=== PATIENT | male | born 1975 | race Hispanic/Latino ===

== ENCOUNTER 2022-12-20 10:48 | Emergency (ER) | payer OTHER ==
[2022-12-20] MEDS ORDERED: Fluorescein Opthalmic Strip ONE (11:43)
[2022-12-20] MEDS ORDERED: Proparacaine 0.5% Opth 15 ML BOT ONE (11:43)
[2022-12-20 12:52] LABS: #Basophils 0.1 thou/uL (0.0-0.2); #Eosinphils 0.1 thou/uL (0.0-0.7); #Monocytes 0.5 thou/uL (0.11-0.59); #Neutrophils 5.6 thou/uL (1.40-6.50); %Basophils 0.7 % (0.0-1.0); %Eosinophils 1.4 % (0.0-10.0); %Lymphocytes 21.5 % (21.0-51.0); %Monocytes 6.2 % (0.0-10.0); Hematocrit 43.5 % (42.0-52.0); Hemoglobin 14.6 g/dL (14.0-18.0); Mean Corpuscular HGB CONC 33.6 g/dL (32.0-36.0); Mean Corpuscular Hemoglobin 28.3 pg (27.0-31.0); Mean Corpuscular Volume 84.3 fl (78.0-98.0); Mean Platelet Volume 9.1 fL (7.4-10.4); Platelet Count 243 10x3/uL (130-400); RBC Distribution Width 13.2 % (11.5-14.5); Red Blood Cell (RBC) Count 5.16 mill/uL (4.70-6.10); White Blood Cell (WBC) Count 8.1 10x3/uL (4.8-10.8)
[2022-12-20 13:26] LABS: ALT (SGPT) 7 U/L (8-55); AST (SGOT) 10 U/L (5-34); Albumin 4.4 g/dL (3.5-5.0); Alkaline Phosphatase 81 U/L (40-110); Anion Gap 11 mmol/L (10-20); BUN (Urea Nitrogen) 9 mg/dL (8.9-20.6); Bilirubin, Total 1.2 mg/dL (0.2-1.2); Calc. Creatinine Clearance 0 mL/min (70-130); Carbon Dioxide 24 mmol/L (22-29); Chloride 107 mmol/L (98-107); Estimated GFR 109; Globulin 2.3 g/dL (2.4-3.5); Glucose 119 mg/dL (70-105); Protein, Total 6.7 g/dL (6.0-8.3); Sodium 138 mmol/L (136-145)
[2022-12-20 13:32] LABS: INR-International Normal Ratio 1.1; PTT 30.5 sec (22.9-36.1); Prothrombin Time 14.5 sec (12.0-14.7)
[2022-12-20] MEDS ORDERED: Aspirin 325 MG TAB ONE (14:15)
[2022-12-20 14:33] LABS: Bacteria/HPF None Seen HPF (None Seen); Bilirubin Negative (Negative); Blood, Urine Negative (Negative); CAUTI Indications for Culture Alt mental st,lethar; Clarity Clear (Clear); Glucose, Urine (Dipstick) Normal (Negative); Ketone, Urine Negative (Negative); Leukocyte Negative Leu/uL (Negative); Nitrite Negative (Negative); Protein, Urine (Dipstick) Negative (Neg-Trace); RBC/HPF None Seen HPF (0-3); Specific Gravity, Urine 1.008 (1.002-1.036); Squamous Epithelial None Seen HPF (0-3); Urobilinogen Normal mg/dL (Less than 2); WBC/HPF None Seen HPF (0-3)
[2022-12-20 14:35] LABS: Urine Culture Reflex No No
[2022-12-20 16:48] LABS: SARS-CoV-2 NAA Rapid Test Not Detected (NotDetected)
== END 2022-12-21 09:45 | disposition short-term general hospital (02) ==
LOC: ERS 10:48 → EEVIPCON 10:48 → ERS 12-21 09:45
DX: H53.451 Other localized visual field defect, right eye (principal); H53.8 Other visual disturbances; I10 Essential (primary) hypertension
CPT/HCPCS: 36415; 70460; 80053; 81001; 85025; 85610; 85730; 93005; U0002